=== PATIENT | female | born 2000 | race Caucasian/White ===

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

== ENCOUNTER → 2019-01-23 | Outpatient (CLI) | payer OTHER ==
[2019-01-23 20:27] LABS: BASO % 0.4 % (0.0-1.0); EOS # 0.3 10^3/uL (0.0-0.50); EOS % 2.6 % (0.0-3.0); HEMATOCRIT 37.4 % (36.0-47.0); HEMOGLOBIN 12.6 g/dl (12.0-15.5); LYMPH # 3.6 10^3/uL (1.5-6.5); MEAN CORPUSCULAR HEMOGLOBIN 28.6 pg (27.0-33.0); MEAN CORPUSCULAR HGB CONC 33.7 g/dl (32.0-36.5); MONO # 0.8 10^3/uL (0.0-0.8); MONO % 7.3 % (0.0-5.0); NEUTROPHILS # 5.6 10^3/uL (1.8-7.7); NEUTROPHILS % 54.4 % (36.0-66.0); PLATELET COUNT, AUTOMATED 266 10^3/uL (150-450); WHITE BLOOD COUNT 10.3 10^3/uL (4.0-10.0)
[2019-01-26 11:16] LABS: HIV 1&2 SCREEN CENTAUR NEGATIVE (NEGATIVE); RUBELLA IgG QUALITATIVE IMMUNE (IMMUNE)
== END ==
LOC: M LABDRWAD 13:53
PROVIDERS: ATTEND Advanced Practice Midwife
DX: Z34.81 Encounter for supervision of other normal pregnancy, first trimester (principal)

== ENCOUNTER → 2019-01-25 | Outpatient (REF) | payer OTHER ==
[2019-01-25 21:14] LABS: CHLAMYDIA DNA AMPLIFICATION NEGATIVE (NEGATIVE); GC DNA AMPLIFICATION NEGATIVE (NEGATIVE)
== END ==
LOC: M LAB REF 10:16
PROVIDERS: ATTEND Advanced Practice Midwife
DX: Z34.81 Encounter for supervision of other normal pregnancy, first trimester (principal); Z3A.00 Weeks of gestation of pregnancy not specified

== ENCOUNTER → 2019-02-02 | Outpatient (CLI) | payer OTHER | LOC: M SMT 14:09 | PROVIDERS: ATTEND Advanced Practice Midwife | DX: Z34.82 Encounter for supervision of other normal pregnancy, second trimester (principal); Z3A.00 Weeks of gestation of pregnancy not specified ==

== ENCOUNTER → 2019-03-20 | Outpatient (CLI) | payer OTHER ==
--- NOTE | 2019-03-23 01:43 | REP ---
Clinical: Anatomical evaluation. Comparison: None . Findings: Examination demonstrates a single live intrauterine in cephalic presentation. motion is identified by technologist. Placenta is noted anterior and grade air grade zero without evidence for placenta previa or abruption. Amniotic fluid volume is normal. Cervix measures 4.5 cm in length and appears closed. No evidence for nuchal cord. Gestational age by LMP 19 weeks 5 days with SOLE 08/09/2019 . Gestational age by current measurements 20 weeks 3 days with SOLE 08/04/2019 . FHR equals 157 beats per minute. BPD 5.0 cm 21 weeks 1 day HC 17.6 cm 20 weeks 1 day AC 14.9 cm 20 weeks 1 day FL 3.1 cm 19 weeks 5 days HL 3.2 cm 20 weeks 6 days HC/AC ratio 1.18 Estimated weight 327 grams ( 58th percentile). Anatomical assessment demonstrates normal structures including cranium, choroid plexus, cavum, cerebellum/posterior fossa, diaphragm, stomach, cord insertion/three-vessel cord, kidneys/bladder, spine, and extremities. Impression: 1. Single live intrauterine in cephalic presentation demonstrating appropriate interval growth. 2. Limited evaluation of the facial features and heart/ventricular outflow tracts due to positioning. Anatomical assessment is otherwise complete and normal. Consider reevaluation/follow-up. Electronically Signed by Jeremy Torres MD 03/23/2019 01:34 A
== END ==
LOC: M RAD 16:44
PROVIDERS: ATTEND Advanced Practice Midwife
DX: Z34.82 Encounter for supervision of other normal pregnancy, second trimester (principal); Z3A.20 20 weeks gestation of pregnancy

== ENCOUNTER → 2019-04-10 | Outpatient (CLI) | payer OTHER ==
--- NOTE | 2019-04-10 18:08 | REP ---
Clinical: Anatomical evaluation. Comparison: 03/20/2019 . Findings: Examination demonstrates a single live intrauterine in cephalic presentation. motion is identified by technologist. Placenta is noted anterior and grade 1 without evidence for placenta previa or abruption. Placental venous lakes noted. Amniotic fluid volume is normal. Cervix measures 3.8 cm in length and appears closed. Nuchal cord cannot be excluded. Gestational age by LMP 22 weeks 5 days with SOLE 08/09/2019 . Gestational age by current measurements 23 weeks 0 days with SOLE 08/07/2019 . FHR equals 141 beats per minute. Estimated weight 524 grams (44th percentile). Anatomical assessment demonstrates normal structures including cranium, choroid plexus, cavum, cerebellum/posterior fossa, lungs, four-chamber heart/ventricular outflow tracts, diaphragm, stomach, cord insertion/three-vessel cord, kidneys/bladder, and spine. Impression: 1. Single live intrauterine demonstrates appropriate interval growth. Limited evaluation of the facial features. Remainder of the anatomical assessment is normal. 2. Nuchal cord cannot be excluded. Electronically Signed by Jeremy Torres MD 04/10/2019 06:00 P
== END ==
LOC: M RAD 16:36
PROVIDERS: ATTEND Advanced Practice Midwife
DX: Z34.82 Encounter for supervision of other normal pregnancy, second trimester (principal); Z3A.23 23 weeks gestation of pregnancy

== ENCOUNTER → 2019-05-12 | Outpatient (CLI) | payer OTHER ==
[2019-05-12 19:26] LABS: HEMATOCRIT 31.6 % (36.0-47.0); HEMOGLOBIN 10.8 g/dl (12.0-15.5); MEAN CORPUSCULAR HEMOGLOBIN 30.8 pg (27.0-33.0); MEAN CORPUSCULAR HGB CONC 34.2 g/dl (32.0-36.5); PLATELET COUNT, AUTOMATED 229 10^3/uL (150-450); RED BLOOD COUNT 3.51 10^6/uL (4.00-5.40); WHITE BLOOD COUNT 9.1 10^3/uL (4.0-10.0)
== END ==
LOC: M ADAMS 16:14
PROVIDERS: ATTEND Advanced Practice Midwife
DX: Z34.02 Encounter for supervision of normal first pregnancy, second trimester (principal); Z3A.00 Weeks of gestation of pregnancy not specified
CPT/HCPCS: 36415; 82950; 85027; 86850; J2790

== ENCOUNTER → 2019-07-16 | Outpatient (REF) | payer OTHER | LOC: M LAB REF 16:51 | PROVIDERS: ATTEND Advanced Practice Midwife | DX: Z34.03 Encounter for supervision of normal first pregnancy, third trimester (principal); Z3A.00 Weeks of gestation of pregnancy not specified ==

== ENCOUNTER → 2019-07-30 | Outpatient (CLI) | payer OTHER ==
[~2019-07-30] MED LIST changes: +ACET-841 PO; +VALT500T PO
== END ==
LOC: M SMT 15:53
PROVIDERS: ATTEND Advanced Practice Midwife
DX: Z34.03 Encounter for supervision of normal first pregnancy, third trimester (principal); Z3A.00 Weeks of gestation of pregnancy not specified

== ENCOUNTER 2019-08-01 18:28 | Inpatient (IN) | payer OTHER ==
[~2019-08-01] VITALS: Ht 154.9 cm; Wt 78.6 kg
[~2019-08-01 18:28] MED LIST changes: -ACET-841 PO; -VALT500T PO
[2019-08-01] MEDS ORDERED: ACET-841 PO (18:47)
[2019-08-01 18:49] VITALS: BP 115/72
[2019-08-01] MEDS ORDERED: VALT500T PO (18:51)
[2019-08-01] MEDS ORDERED: LACTATED RINGER'S 1000 ML IV STA (19:18)
[2019-08-01] MEDS ORDERED: LR 1,000 ML IV SCH (19:18)
[2019-08-01 20:04] LABS: HEMOGLOBIN 10.2 g/dl (12.0-15.5); MEAN CORPUSCULAR HEMOGLOBIN 27.9 pg (27.0-33.0); MEAN CORPUSCULAR HGB CONC 32.9 g/dl (32.0-36.5); MEAN CORPUSCULAR VOLUME 84.7 fl (80.0-96.0); PLATELET COUNT, AUTOMATED 277 10^3/uL (150-450); RED BLOOD COUNT 3.66 10^6/uL (4.00-5.40); WHITE BLOOD COUNT 14.1 10^3/uL (4.0-10.0)
[2019-08-01 20:08] VITALS: BP 122/72
[2019-08-01 21:14] VITALS: BP 128/78
[2019-08-01] MEDS: valACYclovir HCL 500 MG TAB PO SCH (21:14)
[2019-08-01 22:56] VITALS: BP 122/59
[2019-08-01] MEDS ORDERED: FENTANYL 2MCG/ML ROPIVACAINE 0.2% IN 0.9% NACL 100ML IVBAG As Ordered ONE (23:29)
[2019-08-01 23:55] VITALS: BP 134/80
[2019-08-02] VITALS (65 sets, daily range): BP systolic 92–163; BP diastolic 50–111
[2019-08-02] MEDS: FENTANYL/ROPIVACAINE/NACL BAG 100 ML EPIDURAL SCH ×2 (00:35→11:57)
[2019-08-02] MEDS ORDERED: EPIDURAL/PCA KEYS XX PRN (01:30)
[2019-08-02] MEDS ORDERED: EPIDURAL COMMENT XX SCH (01:30)
[2019-08-02] MEDS ORDERED: LACTATED RINGER'S 1000 ML IV PRN (01:30)
[2019-08-02] MEDS ORDERED: REFRIGERATOR IV KEYS XX PRN (01:30)
[2019-08-02] MEDS ORDERED: ePHEDrine SULFATE 25 MG/5 ML(5MG/ML) SYRINGE IV PRN (01:30)
[2019-08-02] MEDS ORDERED: diphenhydrAMINE INJ 50MG/ML VIAL (J1200) IV PRN (01:30)
[2019-08-02] MEDS ORDERED: ONDANSETRON 4MG/2ML VIAL (J2405) IV PRN ×2 (01:30→13:30)
[2019-08-02] MEDS ORDERED: NALOXONE INJ 0.4 MG/1 ML VIAL (J2310) IV PRN (01:30)
[2019-08-02] MEDS ORDERED: OXYTOCIN 30 UNITS IN 0.9% NaCl 500ML IV BAG (J2590) As Ordered ONE ×2 (02:20→12:31)
[2019-08-02] MEDS: OXYTOCIN DRIP 30 UNITS in APPROPRIATE DILUENT 1 EA IV SCH ×2 (02:49→11:58)
[2019-08-02] MEDS: valACYclovir HCL 500 MG TAB PO SCH ×2 (09:26→21:04)
[2019-08-02] MEDS ORDERED: MORPHINE 10 MG/ML 1ML VIAL (J2270) As Ordered ONE (11:35)
[2019-08-02 12:50] LABS: HEMATOCRIT 30.9 % (36.0-47.0); MEAN CORPUSCULAR HGB CONC 32.4 g/dl (32.0-36.5); MEAN CORPUSCULAR VOLUME 86.6 fl (80.0-96.0); PLATELET COUNT, AUTOMATED 263 10^3/uL (150-450); RED BLOOD COUNT 3.57 10^6/uL (4.00-5.40); WHITE BLOOD COUNT 17.7 10^3/uL (4.0-10.0)
[2019-08-02 13:12] LABS: PROTHROMBIN TIME 12.9 SECONDS (11.8-14.0)
[2019-08-02 13:13] LABS: PARTIAL THROMBOPLASTIN TIME 33.6 SECONDS (25.0-38.4)
[2019-08-02] MEDS: LR 1,000 ML IV SCH ×2 (13:21→21:21)
[2019-08-02] MEDS ORDERED: OXYTOCIN DRIP 30 UNITS in APPROPRIATE DILUENT 1 EA IV SCH (13:21)
[2019-08-02] MEDS ORDERED: DOCUSATE SODIUM 100 MG CAP PO PRN (13:30)
[2019-08-02] MEDS ORDERED: RHOGAM 300 MCG (1500 IU) INJ (J2790) IM SCH (13:30)
[2019-08-02] MEDS ORDERED: DIBUCAINE 1% OINTMENT 30GM TOP PRN (13:30)
[2019-08-02] MEDS ORDERED: ACETAMINOPHEN 500 MG TAB PO PRN (13:30)
[2019-08-02] MEDS ORDERED: MEASLES,MUMPS,RUBELLA VACCINE INJ (MMR-II) (90707) SC SCH (13:30)
[2019-08-02] MEDS ORDERED: ACETAMINOPHEN TAB 650MG DOSE (2X325MG) PO PRN (13:30)
[2019-08-02] MEDS ORDERED: PROMETHAZINE 25 MG TAB PO PRN (13:30)
[2019-08-02] MEDS ORDERED: CARBOPROST TROMETHAMINE 250 MCG/ML AMP IM ONE (15:15)
[2019-08-02] MEDS ORDERED: MORPHINE 10 MG/ML 1ML VIAL (J2270) IV ONE (15:15)
[2019-08-02] MEDS ORDERED: miSOPROStol 200 MCG TAB (S0191) PR ONE (15:15)
[2019-08-02] MEDS: IBUPROFEN 800 MG TAB PO PRN (17:34)
[2019-08-02] MEDS ORDERED: SLF 3 ML SYR IV PRN (18:30)
[2019-08-02] MEDS: SLF 3 ML SYR IV SCH (21:51)
[2019-08-03] MEDS: LR 1,000 ML IV SCH ×2 (02:53→09:18)
[2019-08-03] MEDS: SLF 3 ML SYR IV SCH (05:03)
[2019-08-03] MEDS: IBUPROFEN 600 MG TAB PO PRN ×2 (05:03→20:48)
[2019-08-03 05:54] VITALS: BP 96/47
--- NOTE | 2019-08-03 06:38 | IPNPDOC ---
Text Note Date of Service The patient was seen on 08/03/19. NOTE Day 1 Status post , uncomplicated Subjective Pain is well controlled. Lochia decreasing and minimal. Voiding spontaneously. Tolerating a regular diet. Ambulating without any assistance. Denies any subjective fever/chills/nausea/vomiting/headache/visual changes/shortness of breath/chest pain. Formula feeding. Objective Vitals: Normotensive, normal heart rate, afebrile, adequate urine output. Heart: regular, rate, and rhythm. no murmurs/gallops/rubs Lungs: clear to auscultation bilaterally, no wheezes/crackles/rales/ronchi Abd: soft, nontender, nondistended, uterine fundus at the umbilicus and firm Ext: no significant edema, nontender, negative Maximus's bilaterally. Assessment/Plan: 19 year old G1 now [id number] day 1. Recovering well. Hemodynamically stable, afebrile, good pain control. -Routine care -Discharge to home tomorrow -Routine infectious, fever, pain, and bleeding precautions reviewed VS,Roseanna, I+O VS, Roseanna, I+O Laboratory Tests 08/02/19 12:38 Red Blood Count 3.57 L, Mean Corpuscular Volume 86.6, Mean Corpuscular Hemoglo bin 28.0, Mean Corpuscular Hemoglobin Concent 32.4, Red Cell Distribution Width 13.4 Vital Signs Date Time Temp Pulse Resp B/P (MAP) Pulse Ox O2 Delivery O2 Flow Rate FiO2 08/03/19 05:54 98.8 85 17 96/47 (75) 98 I&O- Last 24 Hours up to 6 AM 08/03/19 06:00 Intake Total 5523 ml Output Total 2400 ml Balance 3123 ml GME ATTESTATION GME ATTESTATION My faculty preceptor for this patient encounter was physically present during the encounter and was fully available. All aspects of the patient interview, examination, medical decision making process, and medical care plan development were reviewed and approved by the faculty preceptor. The faculty preceptor is aware and concurs with the plan as stated in the body of this note and will attest to such by his/her cosignature. MADY DAI DO Aug 03, 2019 06:38
[2019-08-03] MEDS: PRENATAL VITAMINS CHEWABLE TABLET PO SCH (08:23)
[2019-08-03] MEDS: valACYclovir HCL 500 MG TAB PO SCH ×2 (08:23→20:46)
[2019-08-03 09:53] VITALS: BP 105/64
[2019-08-03 13:58] VITALS: BP 116/64
[2019-08-03] MEDS: IBUPROFEN 800 MG TAB PO PRN (15:03)
[2019-08-03 17:44] VITALS: BP 119/76
[2019-08-03 21:58] VITALS: BP 110/69
[2019-08-04 02:27] VITALS: BP 106/57
[2019-08-04 06:03] VITALS: BP 107/62
[2019-08-04] MEDS: PRENATAL VITAMINS CHEWABLE TABLET PO SCH (07:51)
[2019-08-04] MEDS: valACYclovir HCL 500 MG TAB PO SCH (07:52)
[2019-08-04] MEDS: IBUPROFEN 800 MG TAB PO PRN (07:52)
== END 2019-08-04 11:50 | disposition home or self-care (01) | DRG 807 ==
LOC: M LDO 18:28 → M LDI 19:18 → M OBS 08-02 17:00
PROVIDERS: ADMIT Obstetrics & Gynecology; ATTEND Obstetrics & Gynecology
PROC: 10E0XZZ Delivery of Products of Conception, External Approach (ICD-10-PCS; principal; 2019-08-02)
PROC: 10D17Z9 Manual Extraction of Products of Conception, Retained, Via Natural or Artificial Opening (ICD-10-PCS; 2019-08-02)
PROC: 0HQ9XZZ Repair Perineum Skin, External Approach (ICD-10-PCS; 2019-08-02)
DX: O73.0 Retained placenta without hemorrhage (principal); Z37.0 Single live birth; Z3A.38 38 weeks gestation of pregnancy; O70.0 First degree perineal laceration during delivery

== ENCOUNTER → 2023-10-25 | Outpatient (CLI) | payer MEDICAID, OTHER ==
[~2023-10-25] MED LIST changes: +ACET-841 PO; +VALT500T PO
[2023-10-25 15:13] LABS: HEMOGLOBIN 12.7 g/dl (12.0-15.5); MEAN CORPUSCULAR HGB CONC 33.4 g/dl (32.0-36.5); MEAN CORPUSCULAR VOLUME 86.8 fl (80.0-96.0); PLATELET COUNT, AUTOMATED 276 10^3/uL (150-450); RED BLOOD COUNT 4.38 10^6/uL (4.00-5.40)
[2023-10-25 15:34] LABS: HIV 1&2 SCREEN NEGATIVE (NEGATIVE)
[2023-10-25 15:43] LABS: HEPATITIS C VIRUS ABY INDEX 0.08 INDEX (<0.8)
[2023-10-25 17:16] LABS: CHLAMYDIA DNA AMPLIFICATION NEGATIVE (NEGATIVE); GC DNA AMPLIFICATION NEGATIVE (NEGATIVE)
== END ==
LOC: M PLALAB 11:30
PROVIDERS: ATTEND Obstetrics & Gynecology
DX: Z34.91 Encounter for supervision of normal pregnancy, unspecified, first trimester (principal)

== ENCOUNTER → 2023-12-24 | Outpatient (CLI) | payer OTHER | LOC: M WHC 11:30 | PROVIDERS: ATTEND Advanced Practice Midwife | DX: Z36.3 Encounter for antenatal screening for malformations (principal); Z3A.20 20 weeks gestation of pregnancy ==

== ENCOUNTER → 2024-02-18 | Outpatient (CLI) | payer OTHER ==
[2024-02-18 14:01] LABS: HEMATOCRIT 32.7 % (36.0-47.0); HEMOGLOBIN 10.7 g/dl (12.0-15.5); MEAN CORPUSCULAR HEMOGLOBIN 28.8 pg (27.0-33.0); MEAN CORPUSCULAR HGB CONC 32.7 g/dl (32.0-36.5); MEAN CORPUSCULAR VOLUME 87.9 fl (80.0-96.0); PLATELET COUNT, AUTOMATED 283 10^3/uL (150-450); RED BLOOD COUNT 3.72 10^6/uL (4.00-5.40); WHITE BLOOD COUNT 10.4 10^3/uL (4.0-10.0)
[2024-02-18 14:53] LABS: GC DNA AMPLIFICATION NEGATIVE (NEGATIVE)
== END ==
LOC: M PLALAB 09:34
PROVIDERS: ATTEND Advanced Practice Midwife
DX: Z34.92 Encounter for supervision of normal pregnancy, unspecified, second trimester (principal); Z3A.00 Weeks of gestation of pregnancy not specified

== ENCOUNTER → 2024-03-03 | Outpatient (CLI) | payer OTHER | LOC: M WHC 11:37 | PROVIDERS: ATTEND Obstetrics & Gynecology | DX: O44.03 Complete placenta previa NOS or without hemorrhage, third trimester (principal); Z3A.30 30 weeks gestation of pregnancy ==

== ENCOUNTER → 2024-04-02 | Outpatient (REF) | payer OTHER ==
[~2024-04-02] MED LIST changes: +VENTAER INH
== END ==
LOC: M PLALAB 10:07
PROVIDERS: ATTEND Obstetrics & Gynecology
DX: Z36.89 Encounter for other specified antenatal screening (principal); Z3A.36 36 weeks gestation of pregnancy

== ENCOUNTER → 2024-04-03 | Outpatient (CLI) | payer OTHER ==
[~2024-04-03] MED LIST changes: +BUSP5TA PO
== END ==
LOC: M WHC 11:59
PROVIDERS: ATTEND Obstetrics & Gynecology
DX: O44.03 Complete placenta previa NOS or without hemorrhage, third trimester (principal); Z3A.35 35 weeks gestation of pregnancy

== ENCOUNTER 2024-04-07 16:28 | Outpatient (CLI) | payer OTHER ==
[~2024-04-07] VITALS: Ht 154.9 cm; Wt 82.5 kg
[~2024-04-07 16:28] MED LIST changes: -BUSP5TA PO
[2024-04-07] MEDS ORDERED: BUSP5TA PO (16:46)
[2024-04-07 16:51] VITALS: BP 117/64
[2024-04-07] MEDS: BETAMETHASONE SOLUSPAN 6MG/ML 5ML VIAL IM ONE (17:08)
== END 2024-04-07 17:20 | disposition home or self-care (01) ==
LOC: M LDO 16:28
PROVIDERS: ATTEND Obstetrics & Gynecology
DX: O44.03 Complete placenta previa NOS or without hemorrhage, third trimester (principal); Z3A.35 35 weeks gestation of pregnancy
CPT/HCPCS: 59025; 96372; G0463; J0702

== ENCOUNTER 2024-04-08 16:59 | Outpatient (CLI) | payer OTHER ==
[~2024-04-08] VITALS: Ht 154.9 cm; Wt 81.9 kg
[~2024-04-08 16:59] MED LIST changes: +BUSP5TA PO
[2024-04-08] MEDS ORDERED: HOME MED LIST COMPLETE! XX SCH (17:15)
[2024-04-08 17:27] VITALS: BP 126/71; O2SAT 100
[2024-04-08] MEDS: BETAMETHASONE SOLUSPAN 6MG/ML 5ML VIAL IM ONE (17:27)
== END 2024-04-08 17:15 | disposition home or self-care (01) ==
LOC: M LDO 16:59
PROVIDERS: ATTEND Advanced Practice Midwife
DX: O44.13 Complete placenta previa with hemorrhage, third trimester (principal); Z3A.35 35 weeks gestation of pregnancy
CPT/HCPCS: 96372; J0702

== ENCOUNTER 2024-04-14 07:41 | Inpatient (IN) | payer OTHER ==
[2024-04-14] VITALS (10 sets, daily range): BP systolic 100–134; BP diastolic 55–79; TEMP 97.9; O2SAT 97–99
[~2024-04-14] VITALS: Ht 154.9 cm; Wt 85.1 kg
[2024-04-14] MEDS ORDERED: TRANEXAMIC ACID INJection 1,000 MG in NS 100 ML IV PRN (08:00)
[2024-04-14] MEDS ORDERED: OXYTOCIN DRIP 30 UNITS in IV 1 EA IV PRN (08:00)
[2024-04-14] MEDS ORDERED: CARBOPROST TROMETHAMINE 250 MCG/ML AMP IM PRN (08:00)
[2024-04-14] MEDS ORDERED: METHYLERGONOVINE MALEATE 0.2MG/ML 1ML VIAL IM PRN (08:00)
[2024-04-14 08:35] LABS: HEMATOCRIT 29.8 % (36.0-47.0); HEMOGLOBIN 9.7 g/dl (12.0-15.5); MEAN CORPUSCULAR HEMOGLOBIN 26.6 pg (27.0-33.0); MEAN CORPUSCULAR HGB CONC 32.6 g/dl (32.0-36.5); MEAN CORPUSCULAR VOLUME 81.9 fl (80.0-96.0); PLATELET COUNT, AUTOMATED 265 10^3/uL (150-450); RED BLOOD COUNT 3.64 10^6/uL (4.00-5.40); WHITE BLOOD COUNT 11.8 10^3/uL (4.0-10.0)
[2024-04-14] MEDS: LACTATED RINGER'S 1000 ML IV STA (08:44)
[2024-04-14] MEDS: ceFAZolin SOD 2 GM in IV 1 EA IV ONE (08:44)
[2024-04-14] MEDS: BICITRA 30ML SOLN UDC PO ONE (08:44)
[2024-04-14] MEDS: FERROUS SULFATE 325MG TAB PO SCH (09:00)
[2024-04-14] MEDS: PRENATAL VITAMINS CHEWABLE TABLET PO SCH (09:00)
[2024-04-14] MEDS: DOCUSATE SODIUM 100MG CAPSULE PO SCH (09:00)
[2024-04-14] MEDS: LR 1,000 ML IV SCH ×2 (09:32→10:50)
[2024-04-14 09:45] LABS: HEPATITIS C VIRUS ABY INDEX < 0.02 INDEX (<0.8)
[2024-04-14] MEDS ORDERED: METOCLOPRAMIDE INJ 10MG/2ML VIAL As Ordered ONE (10:35)
[2024-04-14] MEDS ORDERED: ACETAMINOPHEN 1000MG 100ML IV BAG As Ordered ONE (10:35)
[2024-04-14] MEDS ORDERED: MIDAZOLAM INJ 2MG/2ML VIAL As Ordered ONE (10:35)
[2024-04-14] MEDS ORDERED: GLYCOPYRROLATE INJ 0.2 MG/ML 2 ML VIAL As Ordered ONE (10:35)
[2024-04-14] MEDS ORDERED: MORPHINE PRES-FREE INJ 10 MG/10 ML VIAL As Ordered ONE (10:35)
[2024-04-14] MEDS ORDERED: KETOROLAC 60MG 2ML VIAL As Ordered ONE (10:35)
[2024-04-14] MEDS ORDERED: OXYTOCIN 30UNITS IN 0.9% NaCl 500ML IV BAG As Ordered ONE (10:35)
[2024-04-14] MEDS ORDERED: ONDANSETRON 4MG 2ML VIAL As Ordered ONE (10:35)
[2024-04-14] MEDS ORDERED: ePHEDrine SULFATE 25 MG/5 ML(5MG/ML) SYRINGE As Ordered ONE (10:37)
[2024-04-14] MEDS ORDERED: PHENYLephrine 500MCG 5ML (100MCG/ML) SYRINGE As Ordered ONE (10:37)
[2024-04-14] MEDS: OXYTOCIN DRIP 30 UNITS in IV 1 EA IV SCH (10:50)
[2024-04-14] MEDS ORDERED: ANUSOL HC CREAM 30GM TOP PRN (10:50)
[2024-04-14] MEDS ORDERED: ONDANSETRON 4MG 2ML VIAL IV PRN ×2 (10:50→12:35)
[2024-04-14] MEDS ORDERED: CALCIUM CARBONATE 500 MG CHEW U/D PO PRN (10:50)
[2024-04-14] MEDS ORDERED: SIMETHICONE 80MG CHEW TAB PO PRN (10:50)
[2024-04-14] MEDS ORDERED: ACETAMINOPHEN 500 MG TAB PO PRN (10:50)
[2024-04-14] MEDS ORDERED: MORPHINE 4 MG/ML 1ML VIAL IV PRN (10:50)
[2024-04-14] MEDS ORDERED: ONDANSETRON 4MG TAB PO PRN (10:50)
[2024-04-14] MEDS ORDERED: PERCOCET PO (11:13)
[2024-04-14] MEDS ORDERED: IBUP80TA PO (11:13)
[2024-04-14] MEDS ORDERED: COLA100C5 PO (11:13)
[2024-04-14] MEDS ORDERED: HYDROMORPHONE HCL 0.5 MG/ 0.5 ML SYRINGE IV PRN (12:35)
[2024-04-14] MEDS ORDERED: METOCLOPRAMIDE INJ 10MG/2ML VIAL IV PRN (12:35)
[2024-04-14] MEDS ORDERED: **NOTE PATIENT COMMENT** MISC XX SCH (12:35)
[2024-04-14] MEDS ORDERED: oxyCODONE 5MG TAB PO PRN (12:35)
[2024-04-14] MEDS ORDERED: MEPERIDINE 25 MG/ML 1ML VIAL IV PRN (12:35)
[2024-04-14] MEDS ORDERED: fentaNYL 100 MCG/2 ML INJECTION IV PRN (12:35)
[2024-04-14] MEDS: SLF 3 ML SYR IV SCH (12:35)
[2024-04-14] MEDS ORDERED: NALOXONE INJ 0.4MG/1ML VIAL IV PRN ×2 (12:35)
[2024-04-14] MEDS ORDERED: diphenhydrAMINE 50MG/ML VIAL As Ordered ONE (12:40)
[2024-04-14] MEDS: diphenhydrAMINE 50MG/ML VIAL IV PRN (12:45)
[2024-04-14] MEDS: KETOROLAC 30 MG/ML 1ML VIAL IV SCH (17:24)
[2024-04-15 02:00] VITALS: BP 108/55; O2SAT 97
[2024-04-15 05:54] VITALS: BP 122/68; O2SAT 98
[2024-04-15 06:17] LABS: HEMATOCRIT 25.7 % (36.0-47.0); HEMOGLOBIN 8.3 g/dl (12.0-15.5); MEAN CORPUSCULAR HEMOGLOBIN 26.3 pg (27.0-33.0); MEAN CORPUSCULAR HGB CONC 32.3 g/dl (32.0-36.5); MEAN CORPUSCULAR VOLUME 81.6 fl (80.0-96.0); PLATELET COUNT, AUTOMATED 258 10^3/uL (150-450); RED BLOOD COUNT 3.15 10^6/uL (4.00-5.40); WHITE BLOOD COUNT 14.3 10^3/uL (4.0-10.0)
[2024-04-15 10:00] VITALS: BP 132/69; O2SAT 98
[2024-04-15] MEDS: IBUPROFEN 800 MG TAB PO SCH (12:38)
[2024-04-15] MEDS: PERCOCET 5MG/325MG TAB PO PRN (12:39)
[2024-04-15 14:00] VITALS: BP 101/58; O2SAT 99
[2024-04-15] MEDS: RHO(D) IMMUNE GLOBULIN/MALTOSE 500MCG(2500IU)/2.2ML VIAL (WINRHO) IM SCH (17:51)
[2024-04-15 18:00] VITALS: BP 118/71; O2SAT 96
[2024-04-15 22:00] VITALS: BP 125/60; O2SAT 100
[2024-04-16 02:00] VITALS: BP 115/58; O2SAT 95
[2024-04-16 06:00] VITALS: BP 115/60; O2SAT 97
[2024-04-16 09:41] VITALS: BP 123/66; O2SAT 97
[2024-04-16] MEDS: PERCOCET 5MG/325MG TAB PO PRN (09:42)
[2024-04-16] MEDS: MEASLES,MUMPS,RUBELLA VACCINE INJ (MMR-II) SC.IMMUN ONE (13:58)
== END 2024-04-16 14:45 | disposition home or self-care (01) | DRG 540 ==
LOC: M LDI 07:41 → M OBS 12:58
PROVIDERS: ADMIT Obstetrics & Gynecology; ATTEND Obstetrics & Gynecology
PROC: 10D00Z1 Extraction of Products of Conception, Low, Open Approach (ICD-10-PCS; principal; 2024-04-14 09:30)
DX: O44.00 Complete placenta previa NOS or without hemorrhage, unspecified trimester (principal); Z37.0 Single live birth; Z3A.36 36 weeks gestation of pregnancy